=== PATIENT | female | born 1980 | race Hispanic/Latino ===

== ENCOUNTER 2025-05-15 08:27 | Emergency (ER) | payer OTHER ==
--- OUTSIDE RECORDS SUMMARY | 2025-05-15 08:33 | XMS REPORT | Continuity of Care Document ---
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 Weight 2022-12-12 00:00:00 2992 [oz_av] [facility] BP Systolic 2022-10-17 00:00:00 130 mm[Hg] [facility] Body Weight 2022-10-17 00:00:00 2944 [oz_av] [facility] BP Diastolic 2022-10-17 00:00:00 81 mm[Hg] [facility] Height 2022-10-17 00:00:00 62 [[facility]_i] [facility] Mass Index) 2022-10-17 00:00:00 33.7 kg/m2 [facility] BP Systolic 2019-03-22 15:53:00 112 mm[Hg] Location: RUE; Position: Sitting [facility] BP Diastolic 2019-03-22 15:53:00 75 mm[Hg] Location: RUE; Position: Sitting [facility] Height 2019-03-22 15:53:00 61 [in_us] [facility] Weight 2019-03-22 15:53:00 176.2 [lb_av] [facility] Body Mass Index Calculated 2019-03-22 15:53:00 33.29 kg/m2 [facility] Temperature 2019-03-22 15:53:00 98.7 [degF] Method: Oral [facility] Heart Rate 2019-03-22 15:53:00 80 /min [facility] BP Systolic 2019-02-15 15:30:00 136 mm[Hg] Location: RUE; Position: Sitting [facility] BP Diastolic 2019-02-15 15:30:00 87 mm[Hg] Location: RUE; Position: Sitting [facility] Height 2019-02-15 15:30:00 61 [in_us] [facility] Weight 2019-02-15 15:30:00 181 [lb_av] [facility] Body Mass Index Calculated 2019-02-15 15:30:00 34.2 kg/m2 [facility] Temperature 2019-02-15 15:30:00 98.8 [degF] Method: Oral [facility] Heart Rate 2019-02-15 15:30:00 93 /min [facility] BP Systolic 2018-08-09 16:12:00 128 mm[Hg] Location: LUE; Position: Sitting [facility] BP Diastolic 2018-08-09 16:12:00 83 mm[Hg] Location: LUE; Position: Sitting [facility] Height 2018-08-09 16:12:00 61 [in_us] [facility] Weight 2018-08-09 16:12:00 178 [lb_av] [facility] Body Mass Index Calculated 2018-08-09 16:12:00 33.63 kg/m2 [facility] Temperature 2018-08-09 16:12:00 97.5 [degF] Method: Oral [facility] Heart Rate 2018-08-09 16:12:00 96 /min [facility] BP Systolic 2018-07-05 15:59:00 127 mm[Hg] Location: LUE; Position: Sitting [facility] BP Diastolic 2018-07-05 15:59:00 84 mm[Hg] Location: LUE; Position: Sitting [facility] Height 2018-07-05 15:59:00 61 [in_us] [facility] Weight 2018-07-05 15:59:00 177 [lb_av] [facility] Body Mass Index Calculated 2018-07-05 15:59:00 33.44 kg/m2 [facility] Temperature 2018-07-05 15:59:00 97.5 [degF] Method: Oral [facility] Heart Rate 2018-07-05 15:59:00 97 /min [facility] BP Systolic 2018-06-21 13:53:00 120 mm[Hg] Location: RUE; Position: Sitting [facility] BP Diastolic 2018-06-21 13:53:00 76 mm[Hg] Location: RUE; Position: Sitting [facility] Height 2018-06-21 13:53:00 61 [in_us] [facility] Weight 2018-06-21 13:53:00 172 [lb_av] [facility] Body Mass Index Calculated 2018-06-21 13:53:00 32.5 kg/m2 [facility] Temperature 2018-06-21 13:53:00 98.2 [degF] Method: Oral [facility] Heart Rate 2018-06-21 13:53:00 81 /min [facility] Temperature Oral (F) 2018-05-06 18:20:00 97.4 F [facility] Heart Rate 2018-05-06 13:13:00 [facility] Temperature Oral (F) 2018-05-06 13:13:00 98.3 F [facility] Respitory Rate 2018-05-06 13:13:00 [facility] Systolic (mm Hg) 2018-05-06 13:13:00 [facility] Diastolic (mm Hg) 2018-05-06 13:13:00 [facility] Systolic (mm Hg) 2018-05-06 05:00:00 [facility] Diastolic (mm Hg) 2018-05-06 05:00:00 [facility] Respitory Rate 2018-05-06 05:00:00 [facility] Heart Rate 2018-05-06 05:00:00 [facility] Temperature Oral (F) 2018-05-06 05:00:00 97.7 F [facility] Systolic (mm Hg) 2018-05-05 20:55:00 [facility] Diastolic (mm Hg) 2018-05-05 20:55:00 [facility] Heart Rate 2018-05-05 20:55:00 [facility] Respitory Rate 2018-05-05 20:55:00 [facility] Weight 2018-05-04 16:49:00 [facility] BMI Calculated 2018-05-04 16:49:00 [facility] Height 2018-05-04 16:49:00 154.94 cm [facility] BP Systolic 2018-05-04 10:04:00 112 mm[Hg] Location: RUE; Position: Sitting [facility] BP Diastolic 2018-05-04 10:04:00 76 mm[Hg] Location: RUE; Position: Sitting [facility] Height 2018-05-04 10:04:00 61 [in_us] [facility] Weight 2018-05-04 10:04:00 186 [lb_av] [facility] Body Mass Index Calculated 2018-05-04 10:04:00 35.14 kg/m2 [facility] Temperature 2018-05-04 10:04:00 98.1 [degF] Method: Oral [facility] Heart Rate 2018-05-04 10:04:00 76 /min [facility] BP Systolic 2018-04-27 10:27:00 114 mm[Hg] Location: LUE; Position: Sitting [facility] BP Diastolic 2018-04-27 10:27:00 76 mm[Hg] Location: LUE; Position: Sitting [facility] Height 2018-04-27 10:27:00 61 [in_us] [facility] Weight 2018-04-27 10:27:00 185 [lb_av] [facility] Body Mass Index Calculated 2018-04-27 10:27:00 34.96 kg/m2 [facility] Temperature 2018-04-27 10:27:00 98.2 [degF] Method: Oral [facility] Heart Rate 2018-04-27 10:27:00 76 /min [facility] BP Systolic 2018-04-19 11:14:00 120 mm[Hg] Location: RUE; Position: Sitting [facility] BP Diastolic 2018-04-19 11:14:00 85 mm[Hg] Location: RUE; Position: Sitting [facility] Height 2018-04-19 11:14:00 61 [in_us] [facility] Weight 2018-04-19 11:14:00 184 [lb_av] [facility] Body Mass Index Calculated 2018-04-19 11:14:00 34.77 kg/m2 [facility] Temperature 2018-04-19 11:14:00 98.4 [degF] Method: Oral [facility] Heart Rate 2018-04-19 11:14:00 92 /min [facility] BP Systolic 2018-03-29 15:33:00 128 mm[Hg] Location: RUE; Position: Sitting [facility] BP Diastolic 2018-03-29 15:33:00 82 mm[Hg] Location: RUE; Position: Sitting [facility] Height 2018-03-29 15:33:00 61 [in_us] [facility] Weight 2018-03-29 15:33:00 185 [lb_av] [facility] Body Mass Index Calculated 2018-03-29 15:33:00 34.96 kg/m2 [facility] Temperature 2018-03-29 15:33:00 97.7 [degF] Method: Oral [facility] Heart Rate 2018-03-29 15:33:00 82 /min [facility] Systolic (mm Hg) 2018-03-28 14:10:00 [facility] Diastolic (mm Hg) 2018-03-28 14:10:00 [facility] Respitory Rate 2018-03-28 14:10:00 [facility] Heart Rate 2018-03-28 14:10:00 [facility] Temperature Oral (F) 2018-03-28 14:10:00 98 F [facility] Heart Rate 2018-03-28 11:32:00 [facility] Temperature Oral (F) 2018-03-28 11:32:00 98.1 F [facility] Respitory Rate 2018-03-28 11:32:00 [facility] Systolic (mm Hg) 2018-03-28 11:32:00 [facility] Diastolic (mm Hg) 2018-03-28 11:32:00 [facility] Temperature Oral (F) 2018-03-28 06:35:00 98.4 F [facility] Systolic (mm Hg) 2018-03-28 06:35:00 [facility] Diastolic (mm Hg) 2018-03-28 06:35:00 [facility] Respitory Rate 2018-03-28 06:35:00 [facility] Heart Rate 2018-03-28 06:35:00 [facility] Weight 2018-03-26 21:40:00 [facility] BP Systolic 2018-01-28 16:19:00 121 mm[Hg] Location: RUE; Position: Sitting [facility] BP Diastolic 2018-01-28 16:19:00 76 mm[Hg] Location: RUE; Position: Sitting [facility] Height 2018-01-28 16:19:00 61 [in_us] [facility] Weight 2018-01-28 16:19:00 184.8 [lb_av] [facility] Body Mass Index Calculated 2018-01-28 16:19:00 34.92 kg/m2 [facility] Temperature 2018-01-28 16:19:00 98.1 [degF] Method: Oral [facility] Heart Rate 2018-01-28 16:19:00 84 /min [facility] BP Systolic 2017-12-31 16:36:00 120 mm[Hg] Location: LUE; Position: Sitting [facility] BP Diastolic 2017-12-31 16:36:00 78 mm[Hg] Location: LUE; Position: Sitting [facility] Height 2017-12-31 16:36:00 61 [in_us] [facility] Weight 2017-12-31 16:36:00 182 [lb_av] [facility] Body Mass Index Calculated 2017-12-31 16:36:00 34.39 kg/m2 [facility] Temperature 2017-12-31 16:36:00 98.3 [degF] Method: Oral [facility] Heart Rate 2017-12-31 16:36:00 83 /min [facility] BP Systolic 2017-12-03 15:51:00 118 mm[Hg] Location: RUE; Position: Sitting [facility] BP Diastolic 2017-12-03 15:51:00 76 mm[Hg] Location: RUE; Position: Sitting [facility] Height 2017-12-03 15:51:00 61 [in_us] [facility] Weight 2017-12-03 15:51:00 176.8 [lb_av] [facility] Body Mass Index Calculated 2017-12-03 15:51:00 33.41 kg/m2 [facility] Temperature 2017-12-03 15:51:00 98.3 [degF] Method: Oral [facility] Heart Rate 2017-12-03 15:51:00 98 /min [facility] BP Systolic 2017-11-05 15:55:00 138 mm[Hg] Location: LUE; Position: Sitting [facility] BP Diastolic 2017-11-05 15:55:00 80 mm[Hg] Location: LUE; Position: Sitting [facility] Height 2017-11-05 15:55:00 61 [in_us] [facility] Weight 2017-11-05 15:55:00 173.6 [lb_av] [facility] Body Mass Index Calculated 2017-11-05 15:55:00 32.8 kg/m2 [facility] Temperature 2017-11-05 15:55:00 99.3 [degF] Method: Oral [facility] Heart Rate 2017-11-05 15:55:00 118 /min [facility] BP Systolic 2017-10-08 16:28:00 125 mm[Hg] [facility] BP Diastolic 2017-10-08 16:28:00 83 mm[Hg] [facility] Height 2017-10-08 16:28:00 61 [in_us] [facility] Weight 2017-10-08 16:28:00 174 [lb_av] [facility] Body Mass Index Calculated 2017-10-08 16:28:00 32.88 kg/m2 [facility] Temperature 2017-10-08 16:28:00 98.6 [degF] [facility] Heart Rate 2017-10-08 16:28:00 89 /min [facility] Procedures Procedure Date / Time Performed Performing Clinician Source RADEX ELBOW 2 VIEWS 2024-11-16 00:00:00 [facility] PO[facility] glucose meter docked device 2024-07-15 00:00:00 [facility] Bilateral screening mammogram with tomosynthesis 2024-07-01 00:00:00 [facility] SALPINGO-OOPHORECTOMY, BILATERAL, LAPAROSCOPIC 2024-06-15 12:52:00 Shelby Ferguson [facility] COMPREHENSIVE METABOLIC PANEL 2024-06-15 10:10:00 Mouna Nevarez [facility] TYPE AND SCREEN 2024-06-15 10:10:00 Mouna Nevarez [facility] COMPLETE BLOOD COUNT W/DIFF AND PLATELET 2024-06-15 10:10:00 Mouna Nevarez [facility] COMPLETE BLOOD COUNT 2024-06-15 10:10:00 Jayashree Nevarez ea [facility] AUTOMATED DIFFERENTIAL 2024-06-15 10:10:00 Alena Nevarez [facility] POC URINE MANUALLY RESULTED 2024-06-15 09:47:00 Marty Shelby Moncadaacio [facility] Beta hCG Qualitative Urine 2024-06-15 00:00:00 [facility] ULTRASOUND, ABDOMINAL, REAL TIME WITH IMAGE DOCUMENTATION; COMPLETE 2022-12-22 00:00:00 [facility] ULTRASOUND, ABDOMINAL, REAL TIME WITH IMAGE DOCUMENTATION; COMPLETE 2022-12-15 00:00:00 [facility] MAMMO, screening, digital, bilateral 2022-12-12 00:00:00 [facility] [[facility]] URINALYSIS, COMPLETE 2018-08-09 00:00:00 [facility] [[facility]] CULTURE, URINE, ROUTINE 2018-08-09 00:00:00 [facility] [[facility]] STREPTOCOCCUS, GROUP B CULTURE (Genital Strep Screen) 2018-04-19 00:00:00 [facility] [[facility]] HIV AB, HIV 1/2, EIA, WITH REFLEXES 2018-04-19 00:00:00 [facility] [[facility]] RPR 2018-04-19 00:00:00 [facility]] CBC (INCLUDES DIFF/PLT) 2018-04-19 00:00:00 [facility] [[facility]] GLUCOSE, GESTATIONAL SCREEN (50G)-130 CUTOFF 2018-02-04 00:00:00 [facility] [[facility]] CBC (INCLUDES DIFF/PLT) 2018-02-04 00:00:00 [facility] [[facility]] GLUCOSE, GESTATIONAL SCREEN (50G)-130 CUTOFF 2018-01-28 00:00:00 [facility] [[facility]] CBC (INCLUDES DIFF/PLT) 2018-01-28 00:00:00 [facility] [H] Obstetrics Panel (includes CBCw/Diff,RPR, HbsAg,RubIgG,Type and Screen) 2017-10-08 00:00:00 [facility] [[facility]] URINALYSIS, COMPLETE 2017-10-08 00:00:00 [facility] [[facility]] CULTURE, URINE, ROUTINE 2017-10-08 00:00:00 [facility] [QH] HIV AB, HIV 1/2, EIA, WITH REFLEXES 2017-10-08 00:00:00 [facility] . [facility] - GC/Chlamydia 2017-10-08 00:00:00 [facility] [[facility]] CYSTIC FIBROSIS SCREEN 2017-10-08 00:00:00 [facility] Repair of Tendon [facility] Shoulder incision [facility] Tissue Examination [facility] Oxygen Therapy - Patient Type: Adult; Device: Simple Face Mask; Rate in liters per minute: 4 Lpm; Follow Respiratory Pathway: Yes [facility] Plan of Care Planned Activity Planned Date Details Comments Source Encounters Start Date/Time End Date/Time Encounter Type Admission Type Attending Clinicians Care Facility Care Department Encounter ID Source 2024-11-16 00:00:00 2024-11-16 00:00:00 Stacy Estrada, DATA SCIENCE AND IOT MANAGER: [id number] [place] [address] , [facility] [id number] [facility] 2024-09-13 00:00:00 2024-11-13 22:45:13 Results Follow-Up Marty , Shelby [facility] [address] [facility] [id number] [id number] [id number] [facility] 2024-07-16 10:01:55 2024-07-16 10:31:27 Outpatient Elective MHEOUT MHEOUT [id number] [facility] 2024-07-01 13:30:00 2024-07-01 13:52:16 Office Visit MartyShelby thompson [facility] [address] [facility] [id number] [id number] [id number] [facility] 2024-07-01 00:00:00 2024-07-01 13:51:29 Orders Only Shelby [facility] [id number] [id number] [facility] 2024-06-24 08:45:00 2024-06-24 08:45:00 Outpatient SHELBY FERGUSON [facility] [id number] [facility] 2024-06-15 08:18:00 2024-06-15 19:55:00 Hospital Encounter [facility] [id number] [id number] Barbara Nevarez [facility] 2024-06-15 08:18:00 2024-06-15 19:55:00 Outpatient Elective SHELBY FERGUSON [facility] [id number] [facility] 2024-04-05 09:00:00 2024-04-05 09:00:00 Procedure Visit SHELBY FERGUSON [facility] [address] [id number] [id number] [facility] 2024-02-26 09:30:00 2024-02-26 10:51:11 Office Visit Shelby Ferguson [facility] [address] [id number] [id number] [facility] 2022-12-22 00:00:00 2022-12-22 00:00:00 Stacy Estrada DATA SCIENCE AND IOT MANAGER: [id number] [place] [address] , Ph. [facility] - GC_HGMDA_Go nzalez [facility] Office [id number] [facility] 2022-12-12 00:00:00 2022-12-12 00:00:00 Stacy Estrada DATA SCIENCE AND IOT MANAGER: [id number] [place] [address] , Ph. [facility] - GC_HGMDA_Go nzalez [facility] Office [id number] [facility] 2022-10-17 00:00:00 2022-10-17 00:00:00 Mack SinghMaryanRod caryn, CANDY ROLLER: [id number] [place] [address] , Ph. [facility] - GC_HGMDA_Go nzalez [facility] Office [id number] [facility] 2021-05-01 15:16:00 2021-05-01 18:15:00 Emergency Petey Olivares [facility] [id number] [facility] 2019-03-22 15:45:00 2019-03-22 15:45:00 Appointmen t; SHELBY TERRY M.D. [place] [place], [facility] [id number] [facility] 2019-02-15 15:30:00 2019-02-15 15:30:00 Appointmen t; SHELBY TERRY M.D. [place], [place]VARO, M.[facility]. [facility] [id number] [facility] 2018-08-09 15:45:00 2018-08-09 15:45:00 Appointmen t; SHELBY TERRY M.D. [place], ALVARO, M.D. [facility] [id number] [facility] 2018-07-05 15:45:00 2018-07-05 15:45:00 Appointmen t; SHELBY TERRY M.D. [place], [place]VARO, M.D. [facility] [id number] [facility] 2018-06-21 13:30:00 2018-06-21 13:30:00 Appointmen t; SHELBY TERRY M.D. [place], [place]VARO, M.D. [facility] [id number] [facility] 2018-06-15 15:15:00 2018-06-15 15:15:00 Appointmen t; SHELBY TERRY M.D. [place], ALVARO, M.D. [facility] [id number] [facility] 2018-05-04 15:41:00 2018-05-06 20:12:00 Inpatient nullFlavo r [facility] [id number] [facility] 2018-05-04 10:00:00 2018-05-04 10:00:00 Appointmen t; SHELBY TERRY M.D. [place], ALVARO, M.D. [facility] [id number] [facility] 2018-04-27 10:00:00 2018-04-27 10:00:00 Appointmen t; SHELBY TERRY M.D. [place], ALVARO, M.D. [facility] [id number] [facility] 2018-04-19 10:45:00 2018-04-19 10:45:00 Appointmen t; SHELBY TERRY M.D. [place], ALVARO, M.D. [facility] [id number] [facility] 2018-03-29 15:45:00 2018-03-29 15:45:00 Appointmen t; SHELBY TERRY M.D. [place], ALVARO, M.D. [facility] [id number] [facility] 2018-03-26 21:36:00 2018-03-28 18:13:00 Observatio n nullFlavo [facility] [id number] [facility] 2018-03-08 16:00:00 2018-03-08 16:00:00 Appointmen t; SHELBY TERRY M.D. [place], ALVARO, M.D. [facility] [id number] [facility] 2018-02-04 15:15:00 2018-02-04 15:15:00 Appointmen t; AUTO CAMP ATTENDANT, ROOM4 AUTO CAMP ATTENDANT, ROOM4 [facility] [id number] [facility] 2018-01-28 16:00:00 2018-01-28 16:00:00 Appointmen t; SHELBY TERRY M.D. [place], ALVARO, M.D. [facility] [id number] [facility] 2018-01-21 12:45:00 2018-01-21 12:45:00 Appointmen t; AUTO CAMP ATTENDANT, ROOM1 AUTO CAMP ATTENDANT, ROOM1 [facility] [id number] [facility] 2018-01-14 14:45:00 2018-01-14 14:45:00 Appointmen t; AUTO CAMP ATTENDANT, ROOM2 AUTO CAMP ATTENDANT, ROOM2 [facility] [id number] [facility] 2017-12-31 16:00:00 2017-12-31 16:00:00 Appointmen t; SHELBY TERRY M.D. [place], ALVARO, M.D. [facility] [id number] [facility] 2017-12-03 15:45:00 2017-12-03 15:45:00 Appointmen t; SHELBY TERRY M.D. [place], ALVARO, M.D. [facility] [id number] [facility] 2017-11-05 16:00:00 2017-11-05 16:00:00 Appointmen t; SHELBY TERRY M.D. [place], ALVARO, M.D. [facility] [id number] [facility] 2017-11-05 15:15:00 2017-11-05 15:15:00 Appointmen t; AUTO CAMP ATTENDANT, ROOM1 AUTO CAMP ATTENDANT, ROOM1 [facility] [id number] [facility] 2017-11-05 14:00:00 2017-11-05 14:00:00 Appointmen t; AUTO CAMP ATTENDANT, COUNSELOR AUTO CAMP ATTENDANT, COUNSELOR [facility] [id number] [facility] 2017-10-08 16:00:00 2017-10-08 16:00:00 Appointmen t; SHELBY TERRY M.D. [place], ALVARO, M.D. [facility] [id number] [facility] 2017-03-19 15:45:00 2017-03-19 15:45:00 Appointmen t; SHELBY TERRY M.D. [place], ALVARO, M.D. [facility] [id number] [facility] 2016-05-21 15:30:00 2016-05-21 15:30:00 Appointmen t; SHELBY TERRY M.D. [place], ALVARO, M.D. [facility] [id number] [facility] 2016-04-07 15:00:00 2016-04-07 15:00:00 SHELBY Wilson M.D. [place], ALVARO, M.D. [facility] [id number] [facility] 2015-01-04 22:03:00 2015-01-05 04:59:00 Outpt Diag Services nullFlavo r [facility] Outpatient Imaging [facility] [id number] Barbara Nevarez Results Test Description Test Time Test Comments Results Result Co mments Source [facility] Epicpap, LB + CT/NG + [id number] 00:00:00* Test Item Value Reference Range Interpretation Comme nts chlamydia naat (test code = chlamydia naat) not detected not detected gonorrhea naat (test code = gonorrhea naat) not detected not detected LMP date: (test code = LMP date:) 12/09/2022 Pap, liquid-based (test code = Pap, liquid-based) asc-US nilm A source (liquid-based cytology): (test code = source (liquid-based cytology):) cervical (which includes endocervical) HPV high risk DNA (non 16/18) (test code = HPV high risk DNA (non 16/18)) detected not detected A HPV high risk DNA type 16 (test code = HPV high risk DNA type 16) not detected not detected HPV high risk DNA type 18 (test code = HPV high risk DNA type 18) not detected not detected [facility] MedicalFr T4 and TSH panel - Serum or [id number] 00:00:00* Test Item Value Reference Range Interpretation Comme nts TSH (test code = TSH) 1.170 uIU/mL 0.178-4.530 free T4 (test code = free T4) 1.24 NG/dL 0.80-1.73 [facility] MedicalLipid 1996 panel - Serum or [id number] 00:00:00* Test Item Value Reference Range Interpretation Comme nts cholesterol (test code = cholesterol) 178 mg/dL 0-200 triglycerides (test code = triglycerides) 134 mg/dL 10-150 HDL cholesterol (test code = HDL cholesterol) 41 mg/dL >50 L HDL risk factor (test code = HDL risk factor) 4.3 calc. VLDL cholesterol (test code = VLDL cholesterol) 27 calc Cholesterol in LDL [Mass/vol ume] in Serum or Plasma (test code = 2089-1) 118 mg/dL <100 H [facility]Cyyuosyeeqiqct D3+25-Hydroxyvitamin D2 [Mass/volume] in Serum or [id number] 00:00:00* Test Item Value Reference Range Interpretation Comme nts vitamin D III (test code = v itamin D III) 20.8 NG/mL 32.0-100.0 L [facility] panel - Serum or [id number] 00:00:00* Test Item Value Reference Range Interpretation Comme nts sodium (test code = sodium) 139 mmol/L 136-145 potassium (test code = potassium) 4.2 mmol/L 3.5-5.5 chloride (test code = chloride) 104 mmol/L 98-107 CO2 (test code = CO2) 25 mmol/ L 23-31 glucose (test code = glucose) 114 mg/dL 70-99 H BUN (test code = BUN) 11 mg/dL 6-20 creatinine (test code = creatinine) 0.6 mg/dL 0.5-0.9 calcium (test code = calcium) 9.8 mg/dL 8.8-10.6 total protein (test code = total protein) 6.7 g/dL 6.0-8.3 albumin (test code = albumin) 4.6 g/dL 3.5-5.2 total bilirubin (test code = total bilirubin) 0.3 mg/dL 0.0-1.2 alkaline phosphatase (test code = alkaline phosphatase) 80 U/L 44-147 AST (SGOT) (test code = AST (SGOT)) 50 U/L 0-32 H ALT (SGPT) (test code = ALT (SGPT)) 86 U/L 0-33 H globulin (test code = globulin) 2.1 g/dL 1.7-3.7 A/G ratio (test code = A/G ratio) 2.2 calc. 1.1-2.9 BUN/creatinine ratio (test code = BUN/creatinine ratio) 18.3 calc 10.0-28.0 eGFR non- (test code = eGFR non-) 115.428 mL/min/1.73A? >60.000 eGFR (test code = eGFR ) 138.513 mL/min/1.73A? >60[facility]000 [facility]total in [id number] 00:00:00* Test Item Value Reference Range Interpretation Comme nts Hemoglobin A1c/Hemoglobin.to lasha in Blood (test code = 4548-4) 5.8 % 4.0-5.6 H [facility] MedicalUrinalysis complete panel - [id number] 00:00:00* Test Item Value Reference Range Interpretation Comme nts bacteria, urine (test code = bacteria, urine) none none-few blood, urine (test code = bl ood, urine) negative negative bilirubin, urine (test code = bilirubin, urine) negative negative cast, granular, ur (test cod e = cast, granular, ur) not present not present cast, hyaline, urine (test c ode = cast, hyaline, urine) not present not present cast, RBC, urine (test code = cast, RBC, urine) not present not present character (test code = character) clear clear color (test code = color) yellow yellow crystals urine (test code = crystals urine) oxalate none A epithelial cells, ur (test c ode = epithelial cells, ur) few none-few glucose, urine (test code = glucose, urine) negative negative ketone, urine (test code = ketone, urine) negative negative leukocyte esterase (test cod e = leukocyte esterase) negative negative nitrites urine (test code = nitrites urine) negative negative pH urine (test code = pH urine) 5.5 5.0-8.0 protein, urine (test code = protein, urine) negative negative RBC, urine (test code = RBC, urine) 6-10 0-2 H specific gravity ur (test co de = specific gravity ur) 1.031 1.003-1.030 H urobilinogen urine (test cod e = urobilinogen urine) 0.2 mg/dL 0.2-1.0 WBC, urine (test code = WBC, urine) 0-5 0-5 [facility] panel - Blood by Automated [id number] 00:00:00* Test Item Value Reference Range Interpretation Comme nts WBC (test code = WBC) 7.7 10 3.7-12.0 RBC (test code = RBC) 4.79 10 3.60-5.50 HGB (test code = HGB) 13.9 g/dL 11.5-15.6 HCT (test code = HCT) 43.0 % 34.5-46.5 MCV (test code = MCV) 89.7 um 80.0-102.0 MCH (test code = MCH) 28.9 pg 25.0-34.1 MCHC (test code = MCHC) 32.2 g/dL 29.0-35.0 RDW (test code = RDW) 14.2 % 10.9-16.9 plt (test code = plt) 250 10 136-392 MPV (test code = MPV) 10.5 um 7.4-11.1 gran % (test code = gran %) 67.5 % 36.0-78.0 lymph % (test code = lymph %) 23.9 % 12.0-48.0 mono % (test code = mono %) 5.5 % 0.0-13.0 eos % (test code = eos %) 3 % 0-8 baso % (test code = baso %) 1 % 0-2 gran # (test code = gran #) 5.2 10 1.2-6.8 lymph # (test code = lymph #) 1.8 10 1.2-3.2 mono # (test code = mono #) 0.4 10 0.3-0.8 eos # (test code = eos #) 0.2 10 0.0-0.2 baso # (test code = baso #) 0.0 10 0.0-0.2 [facility] CHEST W/[id number] 17:53:00 [facility] ([facility])Name: JAGUAR SHELDON P : 1980 Sex: F Name: SHELDON MONTESINOS FSED : 1980 Age/S: 40 / F [address] Unit #: [id number] Loc: [address] Phys: Hannah Veliz NP [place], [place] [address] Acct: [id number] Dis Date: Status: REG ER PHONE #: Exam Date: 05/01/2021 2765 FAX #: Reason: RIB FX S/P FALL, PULMONARY CONTUSION EXAMS: CPT CODE: [id number] CT CHEST W/CONTRAST 18359 HISTORY: Hip fracture after fall and pulmonary contusion. COMPARISON: None available. Location: [facility]. CT [address] with contrast: 100 mL of Isovue-370. Automated exposure control. Unremarkable aorta and SVC. Unremarkable visualized neck vasculature. Unremarkable pulmonary arteries (not performed as PE protocol). Heterogeneous thyroid glands. Esophageal wall is not thickened. No mediastinal hematoma. No pathologic adenopathy. Cardiac silhouette is normal without pericardial effusion. Visualized upper abdomen demonstrating early enhancing lesion in the posterior segment 7 of the right lobe the liver in subcapsular location measuring 1.3 cm likely FNH or atypical hemangioma. Second lesion in segment 5 with similar characteristics measured 2.1 cm. Subcutaneous tissues and the musculature are normal without contusion. No lytic or blastic lesions are noted within the bony skeleton. Nondisplaced fracture of the anterolateral left 10th rib. Bibasal subsegmental atelectasis. No contusion or infiltrates or congestion is noted. No bronchiectasis, honeycombing or fibrosis. Study is limited by motion. No pn eumothorax. IMPRESSION: No lung contusion. Bibasal subsegmental atelectasis. No pneumothorax. No mediastinal hematoma. Nondisplaced anterolateral left 10th rib fracture. Unremarkable aorta and pulmonary arteries (not performed as PE protocol). Early enhancing lesions within the right lobe the liver as described above likely FNH or atypical hemangioma. Follow-up with nonemergent CT hemangioma protocol. at 1753 Reported and signed by: Antonio Dent M.D. 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 [place], [place] [address] Acct: [id number] Dis Date: Status: REG ER PHONE #: Exam Date: 05/01/2021 4430 FAX #: Reason: RIB FX S/P FALL, PULMONARY CONTUSION EXAMS: CPT CODE: [id number] CHEST W/CONTRAST 99011 (Continued) CC: Hannah Veliz DATA SCIENCE AND IOT MANAGER Technologist:Henrry Dalton CTDI: DLP:Trnscb Date/Time: 05/01/2021 (1752) t.SDR.TH4 Orig Print D/T: S: 05/01/2021 (1755) PAGE 2 Signed ReportBASIC METABOLIC [id number] 16:06:00* Test Item Value Reference Range Interpretation Comme nts SODIUM (test code = NA) 141 mmol/L 128-145 N POTASSIUM (test code = K) 3.6 mmol/L 3.5-5.1 N CHLORIDE (test code = CL) 104.0 mmol/L 98-107 N CARBON DIOXIDE (test code = CO2) 27.9 mmol/L 22-29 N ANION GAP (test code = GAP) 13 mmol/L 10-20 N GLUCOSE (test code = GLU) 84 mg/dL 70-110 N BLOOD UREA NITROGEN (test code = BUN) 11 mg/dL 7-22 N GLOMERULAR FILTRATION RATE (test code = GFR) > 60 mL/min See_Comment Estimated GFR by using Modified MDRD formula.Chronic kidney disease is defined as either kidney damageor GFR <60 mL/min/1.73 m2 for >3 months. [Automated message] The system which generated this result transmitted reference range: >=60. The reference range was not used to interpret this result as normal/abnormal. CREATININE (test code = CREAT) 0.48 mg/dL 0.55-1.3 L BUN/CREATININE RATIO (test code = BUN/CREA) 22.9 10-20 H CALCIUM (test code = CA) 8.3 mg/dL 8.0-10.5 N HCG SERUM [id number] 16:06:00* Test Item Value Reference Range Interpretation Comme nts HCG SERUM QUAL (test code = HCGQL) NEGATIVE NEGATIVE This HCGQL test is NOT applicable for MALE patients.Check with nurse about probable order error.If Tumor Marker Test needed, nurse should order test "HCGTU"(Test #[id number]) BASIC METABOLIC [id number] 16:01:00* Test Item Value Reference Range Interpretation Comme nts SODIUM (test code = NA) 141 mmol/L 128-145 N POTASSIUM (test code = K) 3.6 mmol/L 3.5-5.1 N CHLORIDE (test code = CL) 104.0 mmol/L 98-107 N CARBON DIOXIDE (test code = CO2) 27.9 mmol/L 22-29 N ANION GAP (test code = GAP) 13 mmol/L 10-20 N GLUCOSE (test code = GLU) 84 mg/dL 70-110 N BLOOD UREA NITROGEN (test code = BUN) 11 mg/dL 7-22 N GLOMERULAR FILTRATION RATE (test code = GFR) > 60 mL/min See_Comment Estimated GFR by using Modified MDRD formula.Chronic kidney disease is defined as either kidney damageor GFR <60 mL/min/1.73 m2 for >3 months. [Automated message] The system which generated this result transmitted reference range: >=60. The reference range was not used to interpret this result as normal/abnormal. CREATININE (test code = CREAT) 0.48 mg/dL 0.55-1.3 L BUN/CREATININE RATIO (test code = BUN/CREA) 22.9 10-20 H CALCIUM (test code = CA) 8.3 mg/dL 8.0-10.5 N HCG SERUM [id number] 16:01:00* Test Item Value Reference Range Interpretation Comme nts HCG SERUM QUAL (test code = HCGQL) NEGATIVE CBC W/O [id number] 15:53:00* Test Item Value Reference Range Interpretation Comme nts WHITE BLOOD CELL (test code = WBC) 9.6 K/mm3 4.5-12.5 N RED BLOOD CELL (test code = RBC) 4.64 mill/mm3 3.7-5.2 N HEMOGLOBIN (test code = HGB) 13.7 gram/dL 11.5-15.5 N HEMATOCRIT (test code = HCT) 40.6 % 36.0-46.0 N MEAN CELL VOLUME (test code = MCV) 87.5 fL 80-98 N MEAN CELL HGB (test code = MCH) 29.5 picogram 27.0-33.0 N MEAN CELL HGB CONCETRATION (test code = MCHC) 33.7 gram/dL 33.0-36.0 N RED CELL DISTRIBUTION WIDTH (test code = RDW) 12.6 % 11.6-16.2 N RED CELL DISTRIBUTION WIDTH SD (test code = RDW-SD) 41.5 fL 37.0-51.0 N PLATELET COUNT (test code = PLT) 219 K/mm3 150-450 N MEAN PLATELET VOLUME (test c ode = MPV) 10.7 fL 6.7-11.0 N [O] Urine Test (in office)2019-03-22 15:56:00* Test Item Value Reference Range Interpretation Comme nts Test, Urine; Nabila l (test code = 2106-3) negative N [facility][QL] URINALYSIS, [id number] 00:00:00* Test Item Value Reference Range Interpretation Comme nts Specific [place] (test code = 2965-2) 1.024 1.005-1.030 pH (test code = 5803-2) 7.0 5.0-7.5 Urine-Color (test code = 5778-6) Yellow Yellow Appearance (test code = 5767-9) Clear Clear WBC Esterase (test code = 5799-2) Negative Negative Protein (test code = 82720-8) Negative Negative/Trace Glucose (test code = 2349-9) Negative Negative Ketones (test code = 2514-8) Negative Negative Occult Blood (test code = 5794-3) Negative Negative Bilirubin (test code = 5770-3) Negative Negative Urobilinogen,Semi-Qn (test code = 18987-5) 1.0 mg/dL 0.2-1.0 Nitrite, Urine (test code = 5802-4) Negative Negative Microscopic Examination (test code = 04011-5) See below: Microscopic was indicated and was performed. WBC (test code = 6690-2) 0-5 0-5 RBC (test code = 789-8) 0-2 0-2 Epithelial Cells (non renal) (test code = 95508-0) 0-10 0-10 Epithelial Cells (renal) (test code = 93832-0) See Comment Casts (test code = 35439-2) See Comment Cast Type (test code = 53700-4) See Comment Crystals (test code = 27052-5) See Comment Crystal Type (test code = 5782-8) See Comment Mucus Threads (test code = 02534-5) Present Not Estab. Bacteria (test code = 630-4) None seen None seen/Few Yeast (test code = 99153-3) See Comment Trichomonas (test code = 11695-2) See Comment Comment (test code = Comment) See Comment [facility]] CULTURE, URINE, [id number] 00:00:00* Test Item Value Reference Range Interpretation Comme nts Urine Culture, Routine (test code = 630-4) Final report Result 1 (test code = Result 1) See Comment Culture shows l ess than 10,000 colony forming units of bacteria permilliliter of urine. This colony count is not generally consideredto be clinically significant. [facility][O] Urine Test (in office)2018-07-05 17:10:00* Test Item Value Reference Range Interpretation Comme nts Test, Urine; Nabila l (test code = 2106-3) Negative N [facility] [id number] 19:17:00* Test Item Value Reference Range Interpretation Comme nts ABO/Rh (test code = ABO/Rh) A POS [id number] 18:52:00* Test Item Value Reference Range Interpretation Comme nts Lymphocytes # (test code = L ymphocytes #) 1.2 1.0-5.5 [facility]acBMKTQKQACT0781-90-76 18:52:00* Test Item Value Reference Range Interpretation Comme nts Treponemal Ab (test code = Treponemal Ab) Non-Reactive *NA*(05/04/18 1:52 PM) [facility]] CBC (INCLUDES DIFF/PLT)2018-04-19 11:56:01* Test Item Value Reference Range Interpretation Comme nts WBC (test code = 6690-2) 9.0 {K/CMM} 3.7-10.4 RBC; Below Low Threshold (te st code = 789-8) 4.02 {M/CMM} 4.20-5.40 Hgb; Below Low Threshold (te st code = 718-7) 11.7 g/dl 12.0-16.0 Hct; Below Low Threshold (te st code = 66239-6) 34.1 % 36.0-48.0 MCV (test code = 787-2) 84.8 fL 80.0-98.0 MCH (test code = 785-6) 29.2 pg 27.0-31.0 MCHC (test code = 786-4) 34.5 g/dl 32.0-36.0 RDW (test code = 788-0) 13.7 % 11.5-14.5 Platelet (test code = 06679-0) 166 {K/CMM} 133-450 Mean Platelet Volume; Above High Threshold (test code = 30039-2) 10.8 fL 7.4-10.4 [facility][Q] HIV AB, HIV 1/2, EIA, WITH [id number] 11:56:01* Test Item Value Reference Range Interpretation Comme nts HIV Ag/Ab 4th Gen (test code = 65490-8) Negative Negative HIV test results should be considered positive only when both the screening andthe confirmatory tests are positive. A negative confirmatory test in patientswith a positive screening test does not exclude HIV infection. If clincallywarranted, an HIV RNA quantitative test should be ordered. [facility][QLH] Qwmrkofszkdi7395-78-04 11:56:01* Test Item Value Reference Range Interpretation Comme nts Segmented Neutrophils; Above High Threshold (test code = 97690-1) 80.5 % 45.0-75.0 Monocytes (test code = 02504-8) 4.3 % 2.0-12.0 Lymphocytes; Below Low Thres hold (test code = 57934-1) 14.0 % 20.0-40.0 Eosinophils (test code = 49755-2) 0.9 % 0.0-4.0 Basophils (test code = 706-2) 0.3 % 0.0-1.0 Segs-Bands # (test code = 89293-0) 7.2 {K/CMM} 1.5-8.1 Lymphocytes # (test code = 78957-2) 1.3 {K/CMM} 1.0-5.5 Monocytes # (test code = 66544-3) 0.4 {K/CMM} 0.0-0.8 Eosinophils # (test code = 35198-1) 0.1 {K/CMM} 0.0-0.5 [facility]] [id number] 11:56:01* Test Item Value Reference Range Interpretation Comme nts RPR (test code = 97723-3) Non-Reactive Non-Reactive [facility][] STREPTOCOCCUS, GROUP B CULTURE (Genital Strep Screen) 2018-04-19 11:56:01* Test Item Value Reference Range Interpretation Comme nts FINAL REPORT (test code = FINAL REPORT) No Beta-Hemolytic Streptococci Isolated [facility] [id number] 01:08:00* Test Item Value Reference Range Interpretation Comme nts U Amph Scr (test code = U Amph Scr) Negative *NA*(03/26/18 8:08 PM) [facility]sgjwuqAHFXWPMMEU1742-76-82 01:08:00* Test Item Value Reference Range Interpretation Comme nts PT (test code = PT) 13.6 s 12.0-14.7 [facility] JhkfyybPGEGYKJQZA0526-12-20 01:08:00* Test Item Value Reference Range Interpretation Comme nts Hep Bs Ag (test code = Hep Bs Ag) Negative *NA*(03/26/18 8:08 PM) [facility] AND [id number] 01:08:00* Test Item Value Reference Range Interpretation Comme nts UA Sq Epi (test code = UA Sq Epi) None Seen [facility]oannCHEM [id number] 22:03:00* Test Item Value Reference Range Interpretation Comme nts Lactic Acid Lvl (test code = Lactic Acid Lvl) 1.1 0.5-2.2 [facility]oSvpzjcmQCVBTFYIFXSHK6801-89-88 22:03:00* Test Item Value Reference Range Interpretation Comme nts S Preg (test code = S Preg) Positive *NA*(03/26/18 5:03 PM) [facility]oNputvkdYUXGTERGMNDR0372-17-64 22:03:00* Test Item Value Reference Range Interpretation Comme nts AGAP (test code = AGAP) 15.4 10.0-20.0 [facility]oDhainrdLNZVXTPJCZ2817-22-45 22:03:00* Test Item Value Reference Range Interpretation Comme nts K-time Rapid (test code = K- time Rapid) 1.0 min 0.6-2.3 [facility] HospitalGhmgvabEBMZJVWFOF6550-49-69 22:03:00* Test Item Value Reference Range Interpretation Comme nts Ethanol Lvl (test code = Ethanol Lvl) no gt [facility] [id number] 21:55:00* Test Item Value Reference Range Interpretation Comme nts ABO/Rh (test code = ABO/Rh) A POS [facility]] CBC (INCLUDES DIFF/PLT)2018-02-04 17:18:01* Test Item Value Reference Range Interpretation Comme nts WBC (test code = 6690-2) 9.1 {K/CMM} 3.7-10.4 RBC; Below Low Threshold (te st code = 789-8) 3.74 {M/CMM} 4.20-5.40 Hgb; Below Low Threshold (te st code = 718-7) 11.1 g/dl 12.0-16.0 Hct; Below Low Threshold (te st code = 26401-0) 32.7 % 36.0-48.0 MCV (test code = 787-2) 87.7 fL 80.0-98.0 MCH (test code = 785-6) 29.7 pg 27.0-31.0 MCHC (test code = 786-4) 33.9 g/dl 32.0-36.0 RDW (test code = 788-0) 13.7 % 11.5-14.5 Platelet (test code = 46915-0) 201 {K/CMM} 133-450 Mean Platelet Volume (test c ode = 43869-8) 10.3 fL 7.4-10.4 [facility]] Kayevyyavawo7636-82-84 17:18:01* Test Item Value Reference Range Interpretation Comme nts Segmented Neutrophils; Above High Threshold (test code = 60897-9) 81.0 % 45.0-75.0 Monocytes (test code = 77478-3) 3.7 % 2.0-12.0 Lymphocytes; Below Low Thres hold (test code = 62807-2) 13.8 % 20.0-40.0 Eosinophils (test code = 99313-6) 1.2 % 0.0-4.0 Basophils (test code = 706-2) 0.3 % 0.0-1.0 Segs-Bands # (test code = 92822-9) 7.4 {K/CMM} 1.5-8.1 Lymphocytes # (test code = 45372-3) 1.3 {K/CMM} 1.0-5.5 Monocytes # (test code = 93301-8) 0.3 {K/CMM} 0.0-0.8 Eosinophils # (test code = 07483-5) 0.1 {K/CMM} 0.0-0.5 [facility][QLH] GLUCOSE, GESTATIONAL SCREEN (50G)-130 [id number] 17:18:01* Test Item Value Reference Range Interpretation Comme nts Glucose Challenge (test code = 1504-0) 132.0 mg/dl <=140.0 [facility][O] Influenza A and B, Rapid Method (In Office)2017-11-05 17:34:00 * Test Item Value Reference Range Interpretation Comme nts INFLUENZA A & B Rapid (test code = INFLUENZA A & B Rapid) B POSITIVE A [facility][H] Obstetrics Panel (includes CBCw/Diff,RPR, HbsAg,RubIgG,Type and Screen)2017-10-08 17:41:01* Test Item Value Reference Range Interpretation Comme nts WBC; Above High Threshold (test code = 6690-2) 12.7 {K/CMM} 3.7-10.4 RBC (test code = 789-8) 4.43 {M/CMM} 4.20-5.40 Hgb (test code = 717-9) 13.2 g/dl 12.0-16.0 Hct (test code = 97715-6) 39.0 % 36.0-48.0 MCV (test code = 787-2) 88.0 fL 80.0-98.0 MCH (test code = 20801-8) 29.7 pg 27.0-31.0 MCHC (test code = 786-4) 33.8 g/dl 32.0-36.0 RDW (test code = 788-0) 13.3 % 11.5-14.5 Platelet (test code = 777-3) 227 {K/CMM} 133-450 MPV (test code = 75804-0) 9.5 fL 7.4-10.4 Segs; Above High Threshold (test code = 66681-9) 76.9 % 45.0-75.0 Monocytes # (test code = 43069-1) 0.6 {K/CMM} 0.0-0.8 Lymphocytes (test code = Lymphocytes) 17.4 % 20.0-40.0 Eosinophils (test code = Eosinophils) 0.7 % 0.0-4.0 Basophils # (test code = 28188-6) 0.1 {K/CMM} 0.0-0.2 Segs-Bands #; Above High Threshold (test code = 09063-9) 9.8 {K/CMM} 1.5-8.1 Lymphocytes # (test code = 16379-8) 2.2 {K/CMM} 1.0-5.5 Eosinophils # (test code = 26683-8) 0.1 {K/CMM} 0.0-0.5 ABORH (test code = 882-1) A POS AB Screen (test code = 890-4) Negative Rubella IgG (test code = 86592-0) 151.6 {IU/ml} >=10.0 Reference Range: Immune >= 10 IU/mL Hep Bs Ag (test code = 5195-3) Negative Negative RPR (test code = 36650-6) Non Reactive Non Reactive [facility][QH] HIV AB, HIV 1/2, EIA, WITH [id number] 17:41:01* Test Item Value Reference Range Interpretation Comme nts HIV Ag/Ab 4th Gen (test code = 48980-7) Negative Negative [facility][H] Cystic Fibrosis [id number] 17:41:01* Test Item Value Reference Range Interpretation Comme nts CF Result (test code = CF Result) Comment: RESULTS: Negativ e for 32 mutations analyzedINTERPRETATION:This individual is negative for the mutations analyzed.This negative result may need further interpretationdepending on the clinical indication. This result reducesbut does not eliminate the risk to be a CF carrier.COMMENTS:The detection rate varies with ethnicity and is listedbelow. The presence of an undetected mutation in theCF gene cannot be ruled out. In the absence offamily history, the remaining risk that a person witha negative result could have at least one CF mutationis listed in the table. If there is a family historyof CF, these risk figures do not apply. As detailedinformation regarding this individual's familyhistory would permit a more accurate assessment ofthis individual's risk to be a carrier of cysticfibrosis, please contact [employer] [phone] for a revised report.Mutation Detection Detection rates are based on mutationRates among Ethnic frequencies in patients affected withGroups cystic fibrosis. Among individuals with an atypical or mild presentation (e.g. congenital absence of the vas deferens, pancreatitis) detection rates may vary from those provided here: Carrier risk reduction when no family history DetectionEthnicity RateAshkenazi 09/18 to 97%JewishCaucasian 09/17 to 90%(non-)-Americ an to 69% to 73% to 55%This interpretation is based on the clinical and familyrelationship information provided and the currentunderstanding of the molecular genetics of this condition.MUTATIONS ANALYZED:G85E V520F Z5969N 2183AA to CV759M G542X V9572C 2097xxaOP643D S549N 394delTT 2789+5G to QX184P S549R 621+1G to T 3120+1G to HW480I G551D 711+1G to T 5191pptUU715D R553X 1078delT 3849+10kbC to YUkbkcE393 R560T 1717-1G to A 8920qfvEAfzjjP739 I5718L 1898+1G to A 3905insTMETHODS/LIMITATIONS:DNA is isolated from the sample and tested for the 32 CFmutations on the [place] Array Platform (CustomMade).Regions of the CFTR gene are amplified enzymatically andsubjected to a solution-phase multiplex allele-specificprimer extension with subsequent hybridization to a beadarray and fluorescence detection. Polymorphisms F508C,I506V and I507V are included in this panel to rule outfalse positive krxhwT933 homozygotes. Reflex testing of5T is included in the panel for R117H interpretation.False positive or negative results may occur for reasonsthat include genetic variants, blood transfusions, bonemarrow transplantation, erroneous representation offamily relationships or contamination of a samplewith maternal cells.REFERENCES:1. Updates on Carrier Screening for Cystic Fibrosis. (2011) Am J Ob Gynecol 117(4):1028-69357. Rakesh et al. (2004) Lou Med 6:387-913. Tami, et al. (2002) Lou Med 4:379-3914. Preconception and carrier screening for cystic fibrosis: (2001)ACOG.ACMG publicationResults Released By: Ronny Christianson M.D., MedicalDirector Report Released By: Ronny Christianson M.D.,[employer] Patternmaker [facility] (test code = Inter) Comment The assay provid es information intended to be used for carrierscreening in adults of reproductive age, as an aid in newbornscreening, and as a confirmatory test for another medicallyestablished diagnosis in newborns and children. The test is notindicated for use in diagnostic testing, pre-implantationscreening, or for any stand-alone diagnostic purposes withoutconfirmation by another medically established diagnostic productor procedure.Performed At: [facility] [id number] [place] [address] [id number] Boyd MD Ph:[phone] At: [facility] [id number] [place], [place] [id number] Boucher MD Ph:[phone] [facility]] URINALYSIS, [id number] 17:39:01* Test Item Value Reference Range Interpretation Comme nts UA Turbidity (test code = 50126-5) Clear Clear UA Spec Grav (test code = 2965-2) 1.006 <=1.030 UA pH (test code = 2756-5) 6.0 5.0-8.0 UA Protein (test code = 50833-1) Negative Negative UA Glucose (test code = 2349-9) Negative Negative UA Ketones (test code = 97915-9) Negative Negative UA Bili (test code = 30965-4) Negative Negative UA Blood (test code = 798-9) Negative Negative UA Nitrite (test code = 38810-6) Negative Negative UA Leuk Est; Abnormal (test code = 08840-8) Small Negative A UA RBC (test code = 10236-7) <1 0-2 UA WBC (test code = 21248-7) 1 {/HPF} 0-5 UA Bacteria (test code = 630-4) Occasional None Seen UA Sq Epi (test code = 50985-0) Occasional Few UA Color (test code = 77899-5) Ltyellow UROBILINOGEN (test code = 16378-8) <=1.0 0.1-1.0 [facility]] CULTURE, URINE, [id number] 17:37:01* Test Item Value Reference Range Interpretation Comme [facility] FINAL REPORT (test code = FI NAL REPORT) No Growth [facility][O] Urine Test (in office)2017-10-08 16:25:00* Test Item Value Reference Range Interpretation Comme [facility] Test, Urine; Abnor mal (test code = 2106-3) Positive A [facility]. [facility] - GC/Zlemtsjok0618-58-17 00:00:00* Test Item Value Reference Range Interpretation Comme nts GC/Chlamydia REPORT (test co de = GC/Chlamydia REPORT) See Comment [facility] - [id number] 00:00:00* Test Item Value Reference Range Interpretation Comme nts PAP REPORT (test code = 52992-1) NEGATIVE [facility] - HPV High [id number] 00:00:00* Test Item Value Reference Range Interpretation Comme [facility] HPV High Risk REPORT (test c ode = HPV High Risk REPORT) Negative [facility] History and Physical Notes Date/Time Note Provider Source 2024-06-14 12:00:59 [facility] Department of Gynecology Interval History & Physical Patient Name: Sheldon Pascual Patient Todays Date: 06/14/2024 LMP: No LMP recorded. CC: "Surgery Today: " HPI: Sheldon Pascual is a 43 y.o. with PSH of D&C, desiring permanent sterilization, here for proposed procedure of laparoscopic single site bilateral salpingectomy. ROS: HEENT: denies any swollen lymph nodes, no eye discomfort, no blurred vision, no ear pain, no nasal drainage or congestion, no sore throat, thrush or other pain CV: no chest pain, no palpitations, no dizziness Lung: no cough, no SOB Breasts: no masses, no pain, no nipple discharge GI: no abdominal pain, no diarrhea or constipation : no pain on urination, no frequency, no urgency Endo: no increase in thirst, no unusual increase in hunger, no hair loss MS: no difficulty ambulating, no weakness, no pain Skin: no rashes, no infections Objective: Vitals: Ht 1.549 m (5' 1") | Wt 83.5 kg (184 lb) | BMI 34.77 kg/m? Gen: Alert and Oriented x 3, No apparent distress, well-appearing CV: Regular Rate and Rhythm Resp: Clear To Auscultation Bilaterally Abd: soft, gravid, Non Tender to Palpation. +Bowel Sounds Ext: No clubbing, cyanosis or edema Pelvic: Deferred until surgery Labs: PAP NILM, hrhpv negative, 02/26/24 A/P: Sheldon Pascual is a 43 y.o. , with PSH of D&C, desiring permanent sterilization, who is here today for proposed procedure of laparoscopic single site bilateral salpingectomy. * Consents confirmed with pt and all questions answered. Pt understands all risks, benefits, indications and alternatives for the proposed procedure, including pain, bleeding, infection, patient regret, failure. Pt still desires to proceed with surgery today. Discussed with Dr. Ferguson , Attending Mouna Nevarez MD/MPH Resident Physician | PGY-1 Department of Obstetrics, Gynecology & Reproductive Sciences [facility] Cosigned by Shelby Ferguson MD at 06/15/2024 1:26 PM CDT Associated attestation - Marty, Shelby Fine MD - 06/15/2024 1:26 PM CDT Attending Addendum I have seen and examined patient. I have read entire history and physical. I have discussed case with team and agree with assessment and plan as described. Obstetrics and Gynecology [facility] Procedure Notes Date/Time Note Provider Source 2024-06-13 15:55:24 No outpatient medications have been marked as taking for the 06/15/24 encounter (Hospital Encounter). Additional Instructions: Thank you for choosing [facility] for your surgical care needs. Our goal is to provide you with compassionate care, while keeping you informed throughout your stay. If at any point you feel that you need additional information, have questions or simply want an update on the plan for the day, please feel free to contact one of our team members at: Day surgery [phone] Anesthesia Clinic [phone] * Arrival Time: You will receive a call from Day Surgery one business day before your scheduled procedure to provide your time of arrival. * If your condition changes, please notify your surgeon and the Day Surgery Dept ([phone]). PARKING INFORMATION/ARRIVAL INFORMATION The [facility] is the closest parking garage to the Adult Day Surgery Admissions area. [facility] Address: [address] [place] [address] You will take the elevators directly connected to this garage down to the 2nd floor-Day Surgery Department to check in and register for your procedure. Please make sure you have a ride home. You can not drive home after your procedure or take an UBER, LYFT, Taxi or any medical transportation (such as Metrolift) by yourself. An adult must accompany you home. FOOD, DRINK, AND MEDICATIONS - You must have an empty stomach during your surgery. Do not eat anything after midnight the evening before your procedure. - Please stop drinking all CLEAR liquids, including water, 3 hours prior to your procedure start time. - Please only take medications that are approved by your doctor and as instructed by the PAT nurse over the phone. - Remember to not smoke, vape, chew tobacco or drink alcohol for at least 24 hours before your procedure. * If you are taking any weekly weight loss injections, please STOP at least 7 days before your scheduled procedure. (Shae, Laila, Kassandra, Tabatha, Saxenda, Victoza, Trulicity.......) ADDITIONAL PREPARATION Please purchase (3) 12 oz bottles of Gatorade/Gatorade Zero, any color except red or orange. Drink 2 bottles of Gatorade the night before your surgery. Drink the last bottle the morning of surgery 1 hour before the arrival time. Your body needs to be thoroughly washed with Hibiclens or Chlorhexidine Gluconate (CHG) soap before surgery. The surgical soap can be found at any drugstore over the counter without a prescription. Taking two showers with CHG soap removes germs from your skin and reduces the risk of infection. Please shower your entire body with the surgical soap except your face and genitals. Please bathe with the soap the night before and the morning of your procedure. DO NOT put any oils, lotions, powders or perfume/cologne on your skin after bathing with the soap. Deodorant may be worn unless you are having a procedure anywhere near your chest/breasts. Wear loose and comfortable clothing. If you have any open wounds or hansen, DO NOT use the CHG soap in those areas. You will need to remove nail croatian and do not wear any makeup. Do not wear contacts. Please bring a case for any glasses, dentures or hearing aides to store them during your procedure. Remove all jewelry, including piercings. Please leave all valuable items at home or give them to a family member to hold until after your procedure. The hospital cannot be responsible for your jewelry or other valuables. Financial considerations should be discussed with the Business Office prior to your surgery date. The Business Office number is or [phone]. The Business Office will advise you if any payments should be made at the time of admission. Bring only what velez, check or credit card will be needed to make the necessary payment to your account. Please click on the link below and read for additional Preoperative Instructions: [email or web address] INSTRUCTIONS GIVEN W/ SOLDERER PATTI #[id number] [facility] Notes Scheduled Orders Date/Time Note Provider Source Health Maintenance Due Date Last Done Comments CT Colonography 1978 Colonoscopy 1978 Colorectal Cancer Screening 1978 FIT-DNA 1978 FIT 1978 FOBT 1978 Lipid Panel 1978 Sigmoidoscopy 1978 Hepatitis A Vaccines (1 of 2 - Risk 2-dose series) 1997 Hepatitis B Vaccines (1 of 3 - 19+ 3-dose series) 1997 Pap Smear 1999 Cervical Cancer Screening 2008 HPV/Cotest 2008 Mammogram 2018 Influenza Vaccine (#1) 2024 07/24/2023 Annual Physical 02/25/2025 02/26/2024, 12/12/2022 DTaP/Tdap/Td Vaccines (2 - T d or Tdap) 03/28/2028 03/28/2018 HIB Vaccines Aged Out No longer eligi ble based on patient's age to complete this topic HPV Vaccines Aged Out No longer eligi ble based on patient's age to complete this topic IPV Vaccines Aged Out No longer eligi ble based on patient's age to complete this topic Meningococcal Vaccine Aged Out No jason kiel eligible based on patient's age to complete this topic Pneumococcal Vaccine: Pediatrics (0 to 5 Years) and At-Risk Patients (6 to 64 Years) Aged Out No longer eligible b ased on patient's age to complete this topic Rotavirus Vaccines Aged Out No longer eligible based on patient's age to complete this topic [facility]vt[facility]77-44-63 13:51:29 Diagnosis Encounter for screening mamm ogram for malignant neoplasm of breast [facility] HospitalNapicsm3874-59-56 13:51:29 [facility]Lfqzgkn1591-22-44 20:00:32* Auth/Cert (Routine) Specialty Diagnoses / Procedures Referred By Conthaydee t Referred To Contact Diagnoses Encounter for sterilization Encounter for sterilization Procedures VA LAPAROSCOPY W/RMVL ADNEXAL STRUCTURES LAPAROSCOPIC SINGLE SITE BILATERAL SALPINGECTOMY Shelby Ferguson MD [address] [address] Phone: tel: fax: [facility] [address] [place] [address] Phone: tel: Referral ID Status Reason Start Date Expiration Date Visits Re quested Visits Authorized [id number] [facility]lf[facility]oy1831-30-02 20:00:32Pending Results Scheduled Orders Name Type Priority Associated Diagnoses Orde r Schedule Beta hCG Qualitative Urine Lab Routine Once (Lab) for 1 Occurrences starting 06/15/2024 until 06/15/2024 Tissue Examination Pathology and Cytology Routine Encounter for sterilization Release Upon Ordering for 1 Occurrences starting 06/15/2024, 1 completed Oxygen Therapy - Patient Type: Adult; Device: Nasal Cannula; Follow Respiratory Pathway: Yes Respiratory Care Routine For RT frequenc y use only for continuous procedures with task-based reminders at 8a and 8p until discontinued starting 06/15/2024 Oxygen Therapy - Patient Type: Adult; Device: Simple Face Mask; Rate in liters per minute: 4 Lpm; Follow Respiratory Pathway: Yes Respiratory Care Routine For RT frequenc y use only for continuous procedures with task-based reminders at 8a and 8p until discontinued starting 06/15/2024 POCT glucose meter docked device Point of Care Testing - Docked Device Routine Every 15 minutes as needed until discontinued starting 06/15/2024 POCT glucose meter docked device Point of Care Testing - Docked Device Routine 3 times daily before meals (Lab) for 30 Days starting 06/16/2024 until 07/15/2024 Scheduled Procedures Name Priority Associated Diagnoses Date/Ti me SALPINGO-OOPHORECTOMY, BILATERAL, LAPAROSCOPIC Encounter for sterilization 06/15/20 12:52 PM CDT Health Maintenance Due Date Last Done Comments CT Colonography 1978 Colonoscopy 1978 Colorectal Cancer Screening 1978 FIT-DNA 1978 FIT 1978 FOBT 1978 Lipid Panel 1978 Sigmoidoscopy 1978 Hepatitis A Vaccines (1 of 2 - Risk 2-dose series) 1997 Hepatitis B Vaccines (1 of 3 - 19+ 3-dose series) 1997 Pap Smear 1999 Cervical Cancer Screening 2008 HPV/Cotest 2008 Mammogram 2018 Influenza Vaccine (#1) 2024 07/24/2023 DTaP/Tdap/Td Vaccines (2 - T d or Tdap) 03/28/2028 03/28/2018 HIB Vaccines Aged Out No longer eligi ble based on patient's age to complete this topic HPV Vaccines Aged Out No longer eligi ble based on patient's age to complete this topic IPV Vaccines Aged Out No longer eligi ble based on patient's age to complete this topic Meningococcal Vaccine Aged Out No jason kiel eligible based on patient's age to complete this topic Pneumococcal Vaccine: Pediat rics (0 to 5 Years) and At-Risk Patients (6 to 64 Years) Aged Out No longer eligible b ased on patient's age to complete this topic Rotavirus Vaccines Aged Out No longer eligible based on patient's age to complete this topic [id number] 20:00:32 Diagnosis Post-op pain - Primary Other acute postoperative pain Encounter for sterilization Sterilization [facility] [id number] 20:00:32 [facility]Yhepimr3793-07-66 19:44:22 Language [employer] medical sales was used to provide discharge instructions to the patient and her mother. All questions were answered. Patient was able to ambulate to the bathroom, urinate, tolerate oral fluids and she reports minimal pain. [facility] MedicineSt[facility] HospitalJkuiwom7314-74-70 13:14:25 Patient interviewed in day surgery unit with her mother at the bedside. Patient verified name, date of , allergies and procedure. UPT negative. Denied any presence of contact lenses, hearing aid, loose teeth, dentures, jewelry nor metal implants. Consented in updating the family throughout the surgery. Transported to OR without any personal belongings T [facility] [id number] 15:45:00 [facility] ([facility]) EMERGENCY PROVIDER REPORT REPORT#:[id number] REPORT STATUS: Signed DATE:05/01/21 TIME: 1544 PATIENT: SHELDON MONTESINOS UNIT #: [id number] ROOM/BED: AGE: 40 SEX: F PCP PHYS: No Primary or Family Physician SERVICE AUTHOR: Hannah Veliz DATA SCIENCE AND IOT MANAGER * ALL edits or amendments must be made on the electronic/computer document * HPI-Trauma Minor/Fall Free Text HPI Notes Free Text HPI Notes 40-year-old female presents for left lateral rib pain status post fall 4 days ago. She reports she was sitting on top of the toilet cleaning when she slipped and fell hitting her left ribs on the toilet bowl. She reports going to an urgent care prior to ER arrival. Urgent care performed an x-ray showing left rib fracture, pulmonary contusion and left pleural effusion. CT chest was recommended for further evaluation. Patient was referred to ER for further exam. Patient free of respiratory distress. Lungs clear bilaterally. She denies blunt head trauma/neck pain/back pain. General Confirmed Patient Yes Patient Type New patient Initial Greet Date/Time 05/01/21 1517 Presentation Chief Complaint Fall, rib pain Hx Obtained From Patient Onset Occurred Days ago Symptom Duration Since onset Progression since Onset Gradually worsening Caused by Accidental (approx 2 ft), Fall from height Severity: Current Moderate Context Immunization Status General All up to date Risk-Trauma Minor/Fall Risk Stratification Nexus C-Spine Criteria No: Post midline tenderness, Intoxicated, Altered LOC/alertness, Focal neuro deficit pres, Distracting injury pres. Daryn Coma Score: Copyright Sir Edward Allen Copyright Sir Edward Allen Eye opening: (4) Spontaneous Verbal response: (5) Oriented Best motor response: (6) Obeys commands GCS Score: 15 Review of Systems ROS Statements All systems rev neg except as marked. Focused Review of Systems Musculoskeletal Reports: Thoracic pain. Past Medical History - Adult Stated Complaint RIB FRACTURE SENT BY URGENT CARE Allergies Coded Allergies: No Known Allergies (12/01/11) Home Medications Reported Medications Pnv/Fe,Carbo/Juliann/Fa/Lm-Folate (Prenate Elite Tablet) [ANTIACID] 1 TAB Docusate Sodium (Colace) 100 MG PO DAILY IBUPROFEN (MOTRIN) Pt reports no significant: Past medical history, Past surgical history Smoking status: Smoking status for patients 13 years old or older: Never Smoker Physical Exam Vital Signs Vital Signs First Documented: Result Date Time Pulse Ox 99 05/01 1520 B/P 137/85 05/01 1520 B/P Mean 102 05/01 1520 Temp 36.9 05/01 1520 Pulse 86 05/01 1520 Resp 18 05/01 1520 Last Documented: Result Date Time Pulse Ox 100 05/01 1815 B/P 124/76 05/01 1815 B/P Mean 92 05/01 1815 Temp 36.8 05/01 181 Pulse 81 05/01 1815 Resp 18 05/01 1815 Review of Vital Signs Reviewed Focused PE General/Const General/Const Awake, Alert MS Head Head Atraumatic, Normocephalic Ears/Nose/Throat Ears/Nose/Throat Atraumatic, Airway patent, Mucous membranes moist, Pharynx NL MS Neck Neck Atraumatic, Supple, Full range of motion, No swelling, Non-tender, No midline vertebral tend Resp/Chest Respiratory/Chest Breath sounds NL, Breath sounds = bilat, No respiratory distress, No rales, No rhonchi, No wheezing, No chest wall deformity, No crepitus Chest Wall/Ribs Chest tender lateral L, Rib tender nondeformed L. Cardiovascular Cardiovascular Heart rate NL, Regular rhythm, Heart sounds NL, Cap refill not delayed, Peripheral circulation NL Abdomen/GI Abdomen/GI Atraumatic, Soft, Non-tender, No guarding, No rebound, No distention MS Back Back Atraumatic, Inspection NL, Painless range of motion, Non-tender, No midline vertebral tend, No CVA tenderness Neurologic Neurologic Oriented X3, Speech NL, No motor deficits, No sensory deficits, CN II - XII intact Interpretation Diagnostics Lab Results Interpretation Results Laboratory Tests 05/01/21 1540: [Embedded Image Not Available] Laboratory Tests: 05/01 1540 Chemistry Sodium (128 - 145 mmol/L) 141 Potassium (3.5 - 5.1 mmol/L) 3.6 Chloride (98 - 107 mmol/L) 104.0 Carbon Dioxide (22 - 29 mmol/L) 27.9 Anion Gap (10 - 20 mmol/L) 13 BUN (7 - 22 mg/dL) 11 Creatinine (0.55 - 1.3 mg/dL) 0.48 L Glomerular Filtr Rate (>=60 mL/min) > 60 BUN/Creatinine Ratio (10 - 20) 22.9 H Glucose (70 - 110 mg/dL) 84 Calcium (8.0 - 10.5 mg/dL) 8.3 Serum , Qual (NEGATIVE) NEGATIVE Hematology WBC (4.5 - 12.5 K/mm3) 9.6 RBC (3.7 - 5.2 mill/mm3) 4.64 Hgb (11.5 - 15.5 gram/dL) 13.7 Hct (36.0 - 46.0 %) 40.6 MCV (80 - 98 fL) 87.5 MCH (27.0 - 33.0 picogram) 29.5 MCHC (33.0 - 36.0 gram/dL) 33.7 RDW (11.6 - 16.2 %) 12.6 RDW Std Deviation (37.0 - 51.0 fL) 41.5 Plt Count (150 - 450 K/mm3) 219 MPV (6.7 - 11.0 fL) 10.7 Recent Impressions: CAT SCAN - CT CHEST W/CONTRAST 05/01 5815 Report Impression - Status: SIGNED Entered: 05/01/2021 2933 IMPRESSION: No lung contusion. Bibasal subsegmental atelectasis. No pneumothorax. No mediastinal hematoma. Nondisplaced anterolateral left 10th rib fracture. Unremarkable aorta and pulmonary arteries (not performed as PE protocol). Early enhancing lesions within the right lobe the liver as described above likely FNH or atypical hemangioma. Follow-up with nonemergent CT hemangioma protocol. Impression By: [email or web address] - Antonio Dent M.D. Lab Imaging Statement Laboratory radiographic studies reviewed and considered in the medical decision-making. Point of Care Testing Pulse Oximetry Pulse Ox % 99 On: Room air Interpretation Interpreted by pr Time 1524 Procedures Peripheral/EJ IV Start #1 Procedure Performed by ED DATA SCIENCE AND IOT MANAGER Type of Catheter Single lumen Size of Catheter #18 Number of Attempts 1 IV Site ACF L Skin Preparation Agent Hibiclens - Chlorhexidine Secured with Tape, Non-occlusive Re-Evaluation MDM Free Text MDM Notes Free Text MDM Notes Reviewed labs and imaging with patient. Labs unremarkable. CT shows no lung contusion no pneumothorax no mediastinal hematoma. Nondisplaced left 10th rib fracture noted. Patient zoraida free of respiratory distress. Lungs clear bilaterally. Patient reports pain well controlled. Discussed need for follow- up with PCP. Return to ER for new worsening symptoms. The vital signs have been stable. The patient does not have uncontrollable pain, intractable vomiting , or other significant symptoms. The patient's condition is stable and appropriate for discharge. The patient will pursue further outpatient evaluation with the primary care physician or other designated or consulting physician as indicated in the discharge instructions. Re-Evaluation/Progress #1 Time of Re-Eval 1805 Re-Eval Status Improved Eval Following Treatment Pt. feels better, Condition improved, Tolerating liquids, no N/ Exam Post Tx - General Active, Alert, Appears well, Vital signs stable Exam Post Tx - Sys Review Lungs clear Plan Post Re-Eval Plan discharge Fall/Minor Trauma MDM Note The patient presented with a complaint of a fall or minor trauma. The patient is now resting comfortably and feels better, is alert and in no distress. The patient has a normal mental status and is neurologically intact. The history, exam, diagnostic testing (if any) and current condition do not demonstrate signs of clinically significant intra-cranial, intra-thoracic, intra-abdominal, or musculoskeletal trauma. The vital signs have been stable. The patient's condition is stable and appropriate for discharge. The patient will pursue further outpatient evaluation with the primary care physician or other designated or consulting physician as indicated in the discharge instructions. ED Course Medication(s) Ordered Medication(s) Ordered: Central Nervous System Agents Sig/Dharmesh Start time Last Medication Dose Route Stop Time Status Admin Morphine Sulfate 4 MG X1ED STA 05/01 1554 DC 05/01 IV 05/01 1555 1615 Diagnostic Agents Sig/Dharmesh Start time Last Medication Dose Route Stop Time Status Admin Iopamidol 0 .STK-MED ONE 05/01 1621 DC 05/01 IV 1711 Gastrointestinal Drugs Sig/Dharmesh Start time Last Medication Dose Route Stop Time Status Admin Ondansetron HCl 4 MG X1ED STA 05/01 1554 DC 05/01 IV 05/01 1555 1615 Patient Discharge Departure Vital Signs/Condition Vital Signs First Documented: Result Date Time Pulse Ox 99 05/01 1520 B/P 137/85 05/01 1520 B/P Mean 102 05/01 1520 Temp 36.9 05/01 1520 Pulse 86 05/01 1520 Resp 18 05/01 1520 Last Documented: Result Date Time Pulse Ox 100 05/01 181 B/P 124/76 05/01 1815 B/P Mean 92 05/01 181 Temp 36.8 05/01 181 Pulse 81 05/01 1815 Resp 18 05/01 1815 All vital signs available at the time of this entry have been reviewed. Condition Stable Clinical Impression Clinical Impression Primary Impression: Rib fracture Disposition Decision Discharge )( Discharged to Home Yes )( Time 1810 )( Date 05/01/21 Discharge/Care Plan Counseled Regarding Diagnosis, Lab results, Imaging studies, Prescriptions, Need for follow-up, When to return to ED (Auto) Prescriptions Current Visit Scripts KETOROLAC (TORADOL) 10 MG PO Q6H PRN PRN PAIN KETOROLAC (TORADOL) 10 MG PO Q6H PRN PRN PAIN #20 TABS Prescriptions Reviewed Risks, Benefits, Alternative treatment Patient Instructions ED Rib Fracture Referrals PRIMARY CARE [facility] Discharge Note I have spoken with the patient and/or caregivers. I have explained the patient's condition, diagnoses and treatment plan based on the information available to me at this time. I have answered the patient's and/or caregiver's questions and addressed any concerns. The patient and/or caregivers have as good an understanding of the patient's diagnosis, condition and treatment plan as can be expected at this point. The vital signs have been stable. The patient's condition is stable and appropriate for discharge from the emergency department. The patient will pursue further outpatient evaluation with the primary care physician or other designated or consulting physician as outlined in the discharge instructions. The patient and/or caregivers are agreeable to this plan of care and follow-up instructions have been explained in detail. The patient and/or caregivers have received these instructions in written format and have expressed an understanding of the discharge instructions. The patient and/or caregivers are aware that any significant change in condition or worsening of symptoms should prompt an immediate return to this or the closest emergency department or a call to 911. Quality Measures BP F/U for HTN Referred for BP f/u < 4wk, F/u with PCP/other doc Smoking Cessation Screened, non user at 1348 RPT #:[id number] END OF [id number] 15:45:00 [facility] ([facility]) EMERGENCY PROVIDER REPORT REPORT#:[id number] REPORT STATUS: Signed DATE:05/01/21 TIME: 1545 PATIENT: SHELDON MONTESINOS UNIT #: [id number] ROOM/BED: AGE: 40 SEX: F PCP PHYS: No Primary or Family Physician SERVICE AUTHOR: Hannah Veliz DATA SCIENCE AND IOT MANAGER * ALL edits or amendments must be made on the electronic/computer document * Hannah Veliz 05/01/21 1545: HPI-Trauma Minor/Fall Free Text HPI Notes Free Text HPI Notes 40-year-old female presents for left lateral rib pain status post fall 4 days ago. She reports she was sitting on top of the toilet cleaning when she slipped and fell hitting her left ribs on the toilet bowl. She reports going to an urgent care prior to ER arrival. Urgent care performed an x-ray showing left rib fracture, pulmonary contusion and left pleural effusion. CT chest was recommended for further evaluation. Patient was referred to ER for further exam. Patient free of respiratory distress. Lungs clear bilaterally. She denies blunt head trauma/neck pain/back pain. General Confirmed Patient Yes Patient Type New patient Initial Greet Date/Time 05/01/21 1517 Presentation Chief Complaint Fall, rib pain Hx Obtained From Patient Onset Occurred Days ago Symptom Duration Since onset Progression since Onset Gradually worsening Caused by Accidental (approx 2 ft), Fall from height Severity: Current Moderate Context Immunization Status General All up to date Risk-Trauma Minor/Fall Risk Stratification Nexus C-Spine Criteria No: Post midline tenderness, Intoxicated, Altered LOC/alertness, Focal neuro deficit pres, Distracting injury pres. Daryn Coma Score: Copyright Sir Edward Allen Copyright Sir Edward Allen Eye opening: (4) Spontaneous Verbal response: (5) Oriented Best motor response: (6) Obeys commands GCS Score: 15 Review of Systems ROS Statements All systems rev neg except as marked. Focused Review of Systems Musculoskeletal Reports: Thoracic pain. Past Medical History - Adult Stated Complaint RIB FRACTURE SENT BY URGENT CARE Allergies Coded Allergies: No Known Allergies (12/01/11) Home Medications Reported Medications Pnv/Fe,Carbo/Juliann/Fa/Lm-Folate (Prenate Elite Tablet) [ANTIACID] 1 TAB Docusate Sodium (Colace) 100 MG PO DAILY IBUPROFEN (MOTRIN) Pt reports no significant: Past medical history, Past surgical history Smoking status: Smoking status for patients 13 years old or older: Never Smoker Physical Exam Vital Signs Vital Signs First Documented: Result Date Time Pulse Ox 99 05/01 1520 B/P 137/85 05/01 1520 B/P Mean 102 05/01 1520 Temp 36.9 05/01 1520 Pulse 86 05/01 1520 Resp 18 05/01 1520 Last Documented: Result Date Time Pulse Ox 100 05/01 1815 B/P 124/76 05/01 1815 B/P Mean 92 05/01 1815 Temp 36.8 05/01 181 Pulse 81 05/01 1815 Resp 18 05/01 1815 Review of Vital Signs Reviewed Focused PE General/Const General/Const Awake, Alert MS Head Head Atraumatic, Normocephalic Ears/Nose/Throat Ears/Nose/Throat Atraumatic, Airway patent, Mucous membranes moist, Pharynx NL MS Neck Neck Atraumatic, Supple, Full range of motion, No swelling, Non-tender, No midline vertebral tend Resp/Chest Respiratory/Chest Breath sounds NL, Breath sounds = bilat, No respiratory distress, No rales, No rhonchi, No wheezing, No chest wall deformity, No crepitus Chest Wall/Ribs Chest tender lateral L, Rib tender nondeformed L. Cardiovascular Cardiovascular Heart rate NL, Regular rhythm, Heart sounds NL, Cap refill not delayed, Peripheral circulation NL Abdomen/GI Abdomen/GI Atraumatic, Soft, Non-tender, No guarding, No rebound, No distention MS Back Back Atraumatic, Inspection NL, Painless range of motion, Non-tender, No midline vertebral tend, No CVA tenderness Neurologic Neurologic Oriented X3, Speech NL, No motor deficits, No sensory deficits, CN II - XII intact Interpretation Diagnostics Lab Results Interpretation Results Laboratory Tests 05/01/21 1540: [Embedded Image Not Available] Laboratory Tests: 05/01 154 Chemistry Sodium (128 - 145 mmol/L) 141 Potassium (3.5 - 5.1 mmol/L) 3.6 Chloride (98 - 107 mmol/L) 104.0 Carbon Dioxide (22 - 29 mmol/L) 27.9 Anion Gap (10 - 20 mmol/L) 13 BUN (7 - 22 mg/dL) 11 Creatinine (0.55 - 1.3 mg/dL) 0.48 L Glomerular Filtr Rate (>=60 mL/min) > 60 BUN/Creatinine Ratio (10 - 20) 22.9 H Glucose (70 - 110 mg/dL) 84 Calcium (8.0 - 10.5 mg/dL) 8.3 Serum , Qual (NEGATIVE) NEGATIVE Hematology WBC (4.5 - 12.5 K/mm3) 9.6 RBC (3.7 - 5.2 mill/mm3) 4.64 Hgb (11.5 - 15.5 gram/dL) 13.7 Hct (36.0 - 46.0 %) 40.6 MCV (80 - 98 fL) 87.5 MCH (27.0 - 33.0 picogram) 29.5 MCHC (33.0 - 36.0 gram/dL) 33.7 RDW (11.6 - 16.2 %) 12.6 RDW Std Deviation (37.0 - 51.0 fL) 41.5 Plt Count (150 - 450 K/mm3) 219 MPV (6.7 - 11.0 fL) 10.7 Recent Impressions: CAT SCAN - CT CHEST W/CONTRAST 05/01 1545 Report Impression - Status: SIGNED Entered: 05/01/2021 0035 IMPRESSION: No lung contusion. Bibasal subsegmental atelectasis. No pneumothorax. No mediastinal hematoma. Nondisplaced anterolateral left 10th rib fracture. Unremarkable aorta and pulmonary arteries (not performed as PE protocol). Early enhancing lesions within the right lobe the liver as described above likely FNH or atypical hemangioma. Follow-up with nonemergent CT hemangioma protocol. Impression By: [email or web address] - Antonio Dent M.D. Lab Imaging Statement Laboratory radiographic studies reviewed and considered in the medical decision-making. Point of Care Testing Pulse Oximetry Pulse Ox % 99 On: Room air Interpretation Interpreted by pr Time 1524 Procedures Peripheral/EJ IV Start #1 Procedure Performed by ED DATA SCIENCE AND IOT MANAGER Type of Catheter Single lumen Size of Catheter #18 Number of Attempts 1 IV Site ACF L Skin Preparation Agent Hibiclens - Chlorhexidine Secured with Tape, Non-occlusive Re-Evaluation MDM Free Text MDM Notes Free Text MDM Notes Reviewed labs and imaging with patient. Labs unremarkable. CT shows no lung contusion no pneumothorax no mediastinal hematoma. Nondisplaced left 10th rib fracture noted. Patient zoraida free of respiratory distress. Lungs clear bilaterally. Patient reports pain well controlled. Discussed need for follow- up with PCP. Return to ER for new worsening symptoms. The vital signs have been stable. The patient does not have uncontrollable pain, intractable vomiting , or other significant symptoms. The patient's condition is stable and appropriate for discharge. The patient will pursue further outpatient evaluation with the primary care physician or other designated or consulting physician as indicated in the discharge instructions. Re-Evaluation/Progress #1 Time of Re-Eval 1805 Re-Eval Status Improved Eval Following Treatment Pt. feels better, Condition improved, Tolerating liquids, no N/ Exam Post Tx - General Active, Alert, Appears well, Vital signs stable Exam Post Tx - Sys Review Lungs clear Plan Post Re-Eval Plan discharge Fall/Minor Trauma MDM Note The patient presented with a complaint of a fall or minor trauma. The patient is now resting comfortably and feels better, is alert and in no distress. The patient has a normal mental status and is neurologically intact. The history, exam, diagnostic testing (if any) and current condition do not demonstrate signs of clinically significant intra-cranial, intra-thoracic, intra-abdominal, or musculoskeletal trauma. The vital signs have been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
[2025-05-15] MEDS ORDERED: KETOROLAC 30 MG/ML INJ ONE (08:54)
[2025-05-15] MEDS ORDERED: ONDANSETRON 4 MG/2 ML VIAL ONE (08:54)
[2025-05-15] MEDS ORDERED: NA CHLORIDE 0.9% 1,000 ML ONE (08:54)
[2025-05-15 09:13] LABS: Absolute Lymphocytes (CBC) 1.1 K/uL (0.7-4.9); Hematocrit 42.5 % (36.0-45.0); Hemoglobin 14.4 g/dL (12.0-15.0); MCH 28.9 pg (27.0-35.0); MCHC 34.0 g/dL (32.0-36.0); MCV 85.0 fL (80-100); MPV 9.2 fL (7.6-11.3); Nucleated RBC Absolute Count 0.0 (0-0); Nucleated Red Blood Cells % 0.1 % (0-0); RBC Red Blood Cell Count 4.99 M/uL (3.86-4.86); White Blood Count 8.80 thou/uL (4.3-10.9)
[2025-05-15 09:17] LABS: Sqamous Epithelial <5 /HPF (None Seen); Urine Crystals Unidentified Few /HPF (None Seen); Urine Culture Reflex Order NOT NEEDED; Urine Microscopic Reflex YN ORDER UMIC; Urine WBC Clump Rare /HPF (None Seen); Urine Yeast (Budding) Trace /HPF (None Seen)
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
[2025-05-15 09:34] LABS: ALT/SGPT 81.0 U/L (13-56); AST/SGOT 38.0 U/L (15-37); Albumin 4.1 g/dL (3.4-5.0); Albumin/Globulin Ratio 1.2 (1.1-1.8); Alkaline Phosphatase 73.0 U/L (45-117); Anion Gap 10.5 mEq/L (5.0-15.0); BUN Blood Urea Nitrogen 8.0 mg/dL (7-18); Globulin 3.5 g/dL (2.3-3.5); Glucose Level 135.0 mg/dL (74-106); Lipase 19.0 U/L (13-75); Potassium 3.5 mEq/L (3.5-5.1)
--- NOTE | 2025-05-15 09:39 | EDPHYS ---
Physician Documentation [facility] Name: Karla Rodrigez Age: 44 yrs Sex: Female : 1980 Arrival Date: 05/15/2025 Time: 08:27 Bed 4 Private MD: ED Physician Rufino Torres HPI: 05/15 08:46 This 44 yrs old Female presents to ER via Ambulatory with complaints of Vomiting, kb Possible Kidney Stone. 08:46 Patient is a 44-year-old female who presents for right flank pain that radiates to kb right lower abdomen that started this morning. Reports dysuria and difficulty urinating.. Historical: - Allergies: 08:45 No Known Allergies; ss - PMHx: 08:45 None; ss - PSHx: 08:45 tubal ligation; ss - Infectious Disease History:: Denies. - Social history:: Smoking status: Patient denies any tobacco usage or history of. ROS: 08:45 Constitutional: As per HPI kb Exam: 08:45 Constitutional: This is a well developed, well nourished patient who is awake, alert, kb and in no acute distress. Head/Face: Normocephalic, atraumatic. ENT: Moist Mucous membranes Cardiovascular: Regular rate Respiratory: Respirations even and unlabored. No increased work of breathing. Talking in full sentences Skin: Warm, dry with normal turgor. Normal color. MS/ Extremity: Pulses equal, no cyanosis. Neurovascular intact. Full, normal range of motion. Neuro: Awake and alert, GCS 15, oriented to person, place, time, and situation. 08:45 Abdomen/GI: Inspection: abdomen appears normal, Bowel sounds: normal, Palpation: soft, in all quadrants, mild abdominal tenderness, in the right upper quadrant and right lower quadrant, 08:45 Back: CVA tenderness, that is mild, that is moderate, is noted on the right, Vital Signs: 08:42 BP 147 / 109; Pulse 76; Resp 16; Temp 98.1(TE); Pulse Ox 100% on R/A; Height 5 ft. 1 ss in. ; Pain 10/10; 10:24 BP 131 / 81; Pulse 93; Resp 16; Pulse Ox 100% ; bp 08:42 Pain Scale: Adult ss MDM: 08:34 Medical Screening Exam initiated kb 08:45 Data reviewed: vital signs, nurses notes. kb 08:45 Historians other than the Patient: Friend: friend. kb 09:38 Differential diagnosis: appendicitis, kidney stone, uti, hydronephrosis. Counseling: I kb had a detailed discussion with the patient and/or guardian regarding the historical points, exam findings, and any diagnostic results supporting the discharge/admit diagnosis, lab results, radiology results, the need for outpatient follow up, a urologist, to return to the emergency department if symptoms worsen or persist or if there are any questions or concerns that arise at home. ED course: pain controlled. . 09:45 External Records Reviewed: [place] [employer] aware reviewed. kb 05/15 08:44 Order name: CBC with Diff; Complete Time: 09:18 kb 05/15 08:44 Order name: CMP; Complete Time: 09:35 kb 05/15 08:44 Order name: Lipase; Complete Time: 09:35 kb 05/15 08:44 Order name: UA Rfx Michael Cult if indicated; Complete Time: 09:18 kb 05/15 08:44 Order name: CT Stone Protocol; Complete Time: 09:35 kb 05/15 08:44 Order name: IV Saline Lock; Complete Time: 09:06 kb 05/15 08:44 Order name: Labs collected and sent; Complete Time: 09:06 kb Administered Medications: 09:06 Drug: TORadol - Ketorolac IVP 15 mg IVP once Route: IVP; Site: right antecubital; bp 09:52 Follow up: Response: No adverse reaction bp 09:06 Drug: Ondansetron IVP 4 mg IVP once; over 2 minutes Route: IVP; Site: right antecubital;bp 09:52 Follow up: Response: No adverse reaction bp 09:06 Drug: NS 0.9% IV 1000 ml IV at 1 bolus Per protocol; to be given as a bolus over 60 bp minutes Route: IV; Rate: 1 bolus; Site: right antecubital; 09:52 Follow up: IV Status: Completed infusion bp 09:45 Drug: Flomax PO 0.4 mg PO once Route: PO; bp 10:28 Follow up: Response: No adverse reaction bp Disposition: 17:09 Co-signature as Attending Physician, Rufino Torres MD I reviewed the patient's care rn provided by the Advanced Practice Provider and agree with the diagnosis and treatment plan. Disposition Summary: 05/15/25 09:39 Discharge Ordered Notes: Location: Home kb Condition: Stable kb Diagnosis - Calculus of ureter kb Followup: kb - With: Emergency Department - When: As needed - Reason: Worsening of condition Followup: kb - With: Private Physician - When: 2 - 3 days - Reason: Recheck today's complaints, Continuance of care, Re-evaluation by your physician Followup: kb - With: Compa Rubio MD - When: 2 - 3 days - Reason: Recheck today's complaints Discharge Instructions: - Discharge Summary Sheet kb - Kidney Stones, [id number] kb - Dietary Guidelines to Help Prevent Kidney Stones kb Forms: - Medication Reconciliation Form kb - Antibiotic Education kb - Prescription Opioid Use kb - Patient Portal Instructions kb - Leadership Thank You Letter kb - Work release form ss Prescriptions: - Flomax 0.4 mg Oral capsule - take 1 capsule ORAL route daily; 10 capsule; Refills: 0, Product Selection kb Permitted - Zofran 4 mg Oral tablet - take 1 tablet ORAL route every 6 hours As needed; 12 tablet; Refills: 0, kb Product Selection Permitted - Diclofenac Sodium 75 mg Oral tablet, delayed release (enteric coated) - take 1 tablet ORAL route 2 times per day As needed; 30 tablet; Refills: 0, kb Product Selection Permitted - Tramadol 50 mg Oral Tablet - take 1 tablet ORAL route every 8 hours as needed; 12 tablet; Refills: 0, kb Product Selection Permitted Signatures: Dispatcher [employer] EDMS Rylee Avila, INSTRUCTIONAL WRITER-C INSTRUCTIONAL WRITER-Rufino Almonte MD MD rn Blanchard, Shelby, RN RN Steven Lopez RN RN bp Corrections: (The following items were deleted from the chart) 08:45 08:45 CBC+H.LAB.BRZ ordered. EDMS EDMS 08:45 08:45 COMPREHENSIVE METABOLIC PANEL+C.LAB.BRZ ordered. EDMS EDMS 08:45 08:45 LIPASE+C.LAB.BRZ ordered. EDMS EDMS 08:45 08:45 UA Rfx Michael Cult if indicated+U.LAB.BRZ ordered. EDMS EDMS 08:45 08:45 Stone Protocol+CT.RAD.BRZ ordered. EDMS EDMS
--- NOTE | 2025-05-15 09:39 | ER ---
Nurse's Notes [facility] Name: Karla Rodrigez Age: 44 yrs Sex: Female : 1980 Arrival Date: 05/15/2025 Time: 08:27 Bed 4 Private MD: Diagnosis: Calculus of ureter Presentation: 05/15 08:42 Chief complaint: Patient states: R flank pain that began this morning with burning with ss urination. Coronavirus screen: Client denies travel out of the [place] in the last 14 days. Ebola Screen: Patient denies exposure to infectious person. Patient denies travel to an Ebola-affected area in the 21 days before illness onset. Initial Sepsis Screen: Does the patient meet any 2 criteria? No. Patient's initial sepsis screen is negative. Does the patient have a suspected source of infection? No. Patient's initial sepsis screen is negative. Risk Assessment: Do you want to hurt yourself or someone else? Patient reports no desire to harm self or others. Onset of symptoms. 08:42 Method Of Arrival: Ambulatory ss 08:42 Acuity: STU 3 ss Triage Assessment: 08:45 General: Appears uncomfortable, obese, Behavior is cooperative, appropriate for age, bp anxious. Pain: Complains of pain in right flank. EENT: No deficits noted. Neuro: No deficits noted. Cardiovascular: No deficits noted. Respiratory: No deficits noted. GI: Reports nausea. : Reports pain in right flank(s). Derm: No deficits noted. Musculoskeletal: No deficits noted. Historical: - Allergies: 08:45 No Known Allergies; ss - PMHx: 08:45 None; ss - PSHx: 08:45 tubal ligation; ss - Infectious Disease History:: Denies. - Social history:: Smoking status: Patient denies any tobacco usage or history of. Screenin:45 [facility] ED Fall Risk Assessment (Adult) History of falling in the last 3 months, bp including since admission No falls in past 3 months (0 pts) Confusion or Disorientation No (0 pts) Intoxicated or Sedated No (0 pts) Impaired Gait No (0 pts) Mobility Assist Device Used No (0 pt) Altered Elimination No (0 pt) Score/Fall Risk Level 0 - 2 = Low Risk Oriented to surroundings. Abuse screen: Denies threats or abuse. Denies injuries from another. Nutritional screening: No deficits noted. Tuberculosis screening: No symptoms or risk factors identified. Assessment: 09:45 Reassessment: DC ON HOLD FOR IVF COMPLETION. bp Vital Signs: 08:42 BP 147 / 109; Pulse 76; Resp 16; Temp 98.1(TE); Pulse Ox 100% on R/A; Height 5 ft. 1 ss in. ; Pain 10/10; 10:24 BP 131 / 81; Pulse 93; Resp 16; Pulse Ox 100% ; bp 08:42 Pain Scale: Adult ss ED Course: 08:31 Patient arrived in ED. im 08:34 Rylee Avila FNP-C is PHCP. kb 08:34 Rufino Torres MD is Attending Physician. kb 08:45 Triage completed. ss 08:45 Arm band placed on right wrist. ss 08:48 Steven Lopez, PAPO is Primary Nurse. bp 09:07 Initial lab(s) drawn, by me, sent to lab. Urine collected: clean catch specimen, clear. bp Inserted saline lock: 20 gauge in right antecubital area, using aseptic technique. Blood collected. Flushed with 10 mL NS. 09:12 CT Stone Protocol In Process Unspecified. EDMS 09:41 Compa Rubio MD is Referral Physician. kb 09:45 Patient has correct armband on for positive identification. Provided Education on: NA. bp 10:27 No provider procedures requiring assistance completed. IV discontinued, intact, bp bleeding controlled, No redness/swelling at site. Pressure dressing applied. Administered Medications: 09:06 Drug: TORadol - Ketorolac IVP 15 mg IVP once Route: IVP; Site: right antecubital; bp 09:52 Follow up: Response: No adverse reaction bp 09:06 Drug: Ondansetron IVP 4 mg IVP once; over 2 minutes Route: IVP; Site: right antecubital;bp 09:52 Follow up: Response: No adverse reaction bp 09:06 Drug: NS 0.9% IV 1000 ml IV at 1 bolus Per protocol; to be given as a bolus over 60 bp minutes Route: IV; Rate: 1 bolus; Site: right antecubital; 09:52 Follow up: IV Status: Completed infusion bp 09:45 Drug: Flomax PO 0.4 mg PO once Route: PO; bp 10:28 Follow up: Response: No adverse reaction bp Medication: 10:28 VIS not applicable for this client. bp Outcome: 09:39 Discharge ordered by . eriberto 10:27 Discharged to home ambulatory, bp 10:27 Condition: stable 10:27 Discharge instructions given to patient, Instructed on discharge instructions, follow up and referral plans. medication usage, Demonstrated understanding of instructions, follow-up care, medications, Prescriptions given X 4, 10:30 Patient left the ED. bp Signatures: Dispatcher [employer] EDCT Rylee Avila, NICOLÁS-Michelle MONZON-Jacqui Coolye, RN RN Steven Lopez, PAPO RN bp Mia Bonilla
[2025-05-15] MEDS ORDERED: TAMSULOSIN 0.4 MG SR CAP ONE (09:42)
[2025-05-15 11:10] VITALS: TEMP 98.1; O2SAT 100
[2025-05-15 11:11] VITALS: BP 131/81
== END 2025-05-15 10:30 | disposition home or self-care (01) ==
LOC: ER 08:27
DX: N20.1 Calculus of ureter (principal)
CPT/HCPCS: 96361; 85025; 81001; 36415; 83690; 80053; 76377; 74176; 96375; 96374; 99284; J2405; J7030